=== PATIENT | female | born 1990 | race Caucasian/White ===

== ENCOUNTER 2022-08-26 04:34 | Emergency (ER) | payer BC ==
[2022-08-26] MEDS ORDERED: Lidocaine 2% Viscous Solution 15 ML UD PO ONE (04:46)
[2022-08-26] MEDS ORDERED: Benzocaine 20% Topical Spray UD MUCMEM ONE (04:46)
[2022-08-26] MEDS ORDERED: traMADol 50 MG Tab PO ONE (04:47)
[2022-08-26] MEDS ORDERED: Cephalexin 500 MG Cap PO ONE (04:47)
== END 2022-08-26 05:02 | disposition home or self-care (01) ==
LOC: MW.ED 04:34
DX: K03.81 Cracked tooth (principal); K04.7 Periapical abscess without sinus
CPT/HCPCS: 99282; A9270